=== PATIENT | female | born 2000 | race Caucasian/White ===

== ENCOUNTER 2024-10-25 02:00 | Emergency (ER) | payer BC ==
[2024-10-25] MEDS ORDERED: Sodium Chloride 0.9% 10 ML Syringe FLUSH PRN (03:05)
[2024-10-25 03:11] LABS: BASOPHILS PERCENT AUTO 0.5 % (0.2-1.2); EOSINOPHILS ABSOLUTE AUTO 0.1 x10^3/uL (0.0-0.5); EOSINOPHILS PERCENT AUTO 0.8 % (0.0-4.0); HEMATOCRIT 33.2 % (33.0-47.0); HEMOGLOBIN 11.4 g/dL (12.0-16.0); LYMPHOCYTES ABSOLUTE AUTO 1.3 x10^3/uL (1.0-4.8); LYMPHOCYTES PERCENT AUTO 21.9 % (25.0-50.0); MEAN CORPUSCULAR HEMOGLOBIN 31.2 pg (26.0-32.0); MEAN CORPUSCULAR HGB CONC 34.3 g/dL (32.0-36.0); MONOCYTES ABSOLUTE AUTO 0.3 x10^3/uL (0.0-0.8); MONOCYTES PERCENT AUTO 5.3 % (2.0-11.0); NEUTROPHILS ABSOLUTE AUTO 4.3 x10^3/uL (1.8-7.7); NEUTROPHILS PERCENT AUTO 71.5 % (50.0-80.0); PLATELET COUNT,PLT 271 x10^3/uL (130-400); RED BLOOD CELL COUNT 3.65 x10^6/uL (4.00-5.50)
[2024-10-25 03:32] LABS: INR 0.9 (0.9-1.1); PROTHROMBIN TIME 10.1 SEC (9.6-12.0); PTT,PARTIAL THROMBOPLSTIN TIME 25.7 SEC (23.5-33.2)
[2024-10-25 03:35] LABS: LACTIC ACID 1.7 mmol/L (0.4-2.0)
[2024-10-25 03:39] LABS: A/G RATIO 1.03; ALANINE AMINOTRANSFERASE,ALT 43 U/L (14-59); ALBUMIN 3.4 g/dL (3.4-5.0); ALKALINE PHOSPHATASE 65 U/L (46-116); AMYLASE 448 U/L (25-115); ANION GAP 13.2 mmol/L (5-15); ASPARTATE AMNIOTRANSFERASE,AST 33 U/L (15-37); BILIRUBIN TOTAL 0.6 mg/dL (0.2-1.0); BLOOD UREA NITROGEN,BUN 9 mg/dL (7-18); CALCIUM 8.4 mg/dL (8.5-10.1); CARBON DIOXIDE,CO2 29 mmol/L (21-32); CHLORIDE,CL 104 mmol/L (98-107); CREATININE 0.8 mg/dL (0.55-1.02); GLUCOSE RANDOM 109 mg/dL (70-99); POTASSIUM,K 3.2 mmol/L (3.5-5.1); PROTEIN TOTAL,TP 6.7 g/dL (6.4-8.2); SODIUM,NA 143 mmol/L (136-145)
[2024-10-25 03:40] LABS: ESTIMATED GFR 104 mL/min (>=60); LIPASE 1814 U/L (19-71)
[2024-10-25] MEDS: Ondansetron 4 MG/2 ML SDV IVPUSH ONE (04:08)
[2024-10-25 04:10] LABS: CHOLESTEROL HDL 50 mg/dL (40-59); CHOLESTEROL LDL CALCULATED 76 mg/dL (0-130); CHOLESTEROL TOTAL 142 mg/dL (0-199); TRIGLYCERIDES 82 mg/dL (0-149)
[2024-10-25] MEDS: Lactated Ringers 1,000 ML IV ONE (04:16)
== END 2024-10-25 05:08 | disposition home or self-care (01) ==
LOC: VM.ED 02:00
DX: K85.90 Acute pancreatitis without necrosis or infection, unspecified (principal); Z88.2 Allergy status to sulfonamides
CPT/HCPCS: 36415; 80053; 80061; 82150; 82977; 83605; 83690; 85025; 85610; 85730; 96360; 99283; 99284; J7120